=== PATIENT | female | born 1970 | race Caucasian/White ===

== ENCOUNTER 2018-02-25 10:41 | Emergency (ER) | payer OTHER ==
[2018-02-25 10:47] VITALS: BP 154/99
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
[2018-02-25] MEDS ORDERED: OXYMETAZOLINE HCL 0.05% NASAL SPRAY 15 ML BOTTLE NASL ONE (12:25)
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
== END 2018-02-25 12:40 | disposition home or self-care (01) ==
LOC: ER 10:41
DX: S09.92XA Unspecified injury of nose, initial encounter (principal); W50.0XXA Accidental hit or strike by another person, initial encounter; Y92.239 Unspecified place in hospital as the place of occurrence of the external cause; Y99.0 Civilian activity done for income or pay; M54.2 Cervicalgia; I10 Essential (primary) hypertension
CPT/HCPCS: 70150; 72040; 99283; J3490

== ENCOUNTER → 2018-03-25 | Outpatient (CLI) | payer OTHER ==
--- NOTE | 2018-03-25 17:00 | RADIOLOGY REPORT (SQ) ---
EXAM DESCRIPTION: MRI CERVICAL SPINE WITHOUT COMPLETED DATE/TIME: 03/25/2018 12:50 pm REASON FOR STUDY: M47.12 OTHER SPONDYLOSIS WITH MYELOPATHY, CERVICAL REGION M47.12 OTHER SPONDYLOSI S WITH MYELOPATHY, CERVICAL REGION COMPARISON: None. TECHNIQUE: Sagittal and Axial imaging includes T1, T2, STIR and gradient echo sequences. LIMITATIONS: None. FINDINGS: ALIGNMENT: Straightening of cervical lordosis VERTEBRAE: Intact. BONE MARROW: Fatty degenerative endplate changes at C6-7 DISCS: Diffuse decreased T2 weighted intervertebral disc signal throughout the cervical spine HARDWARE: None in the spine. CORD AND BASE OF BRAIN: Normal in size and signal intensity. SOFT TISSUES: No soft tissue masses. C1-C2: No significant spinal stenosis. C2-C3: No significant spinal stenosis or exit foraminal stenosis. C3-C4: No significant spinal stenosis or exit foraminal stenosis. C4-C5: No central or right foraminal narrowing. Mild left foraminal stenosis from facet and uncovert ebral hypertrophy C5-C6: Broad diffuse left paracentral foraminal and lateral disc bulge and bony spurring causes mild to moderate left foraminal narrowing. No significant central stenosis or right foraminal narrowing C6-C7: Broad diffuse posterior disc bulge and bony spurring is present right greater than left with m oderate to high-grade right C6-7 foraminal stenosis. Mild left C6-7 foraminal stenosis. No signific ant central canal impingement. C7-T1: No significant spinal stenosis or exit foraminal stenosis. UPPER THORACIC: Incompletely imaged. No significant spinal stenosis or exit foraminal stenosis. OTHER: No other significant finding. IMPRESSION: Multilevel degenerative changes with foraminal narrowing as above. TECHNICAL DOCUMENTATION: JOB ID: [id number] [employer]- All Rights Reserved Reading location - IP/workstation name: [email or web address]
== END ==
LOC: RAD 12:11 → MERGE 12:11
PROVIDERS: ATTEND Family Medicine
DX: M47.12 Other spondylosis with myelopathy, cervical region (principal)
CPT/HCPCS: 72141

== ENCOUNTER → 2018-03-31 | Outpatient (CLI) | payer OTHER ==
--- NOTE | 2018-04-01 09:59 | RADIOLOGY REPORT (SQ) ---
EXAM DESCRIPTION: MRI LT UPPER JOINT WITHOUT COMPLETED DATE/TIME: 03/31/2018 9:28 pm REASON FOR STUDY: IMPINGEMENT SYNDROME OF LEFT SHOULDER M75.42 IMPINGEMENT SYNDROME OF LEFT SHOULDE R COMPARISON: None. TECHNIQUE: Left shoulder images acquired and stored on PACS. Multiplanar imaging to include fat sens itive sequences such as T1, water sensitive sequences such as FST2/STIR, cartilage sensitive sequence s such as FSPD/gradient-echo sequences. LIMITATIONS: None. FINDINGS: BONE MARROW AND CORTEX: No worrisome bone lesions or marrow replacement. No occult fractur es. JOINT OR BURSAL EFFUSION: No significant joint or bursal fluid. No suggestion of loose bodies. GLENO-HUMERAL ARTICULATION: Normal articulation. No subluxation. No cystic change. No osteophytes or cartilage loss. ACROMION AND AC JOINT: Type 2. Mild AC joint arthropathy. ROTATOR CUFF AND INTERVAL: Mild tendinopathy in the infraspinatus and posterior supraspinatus No rotator interval tear. No rotator interval thickening to suggest adhesive capsulitis. LABRUM AND BICEPS LABRAL COMPLEX: Intact. No labral tear. Intra-articular long-head biceps tendon n ormal. Distal biceps in normal location in bicipital groove. REMAINDER OF LABRUM AND IGHL : No gross tear or paralabral cyst formation. Labral evaluation is less than optimal without joint distention. No thickening of IGHL to suggest adhesive capsulitis. PERIARTICULAR AND ADJACENT SOFT TISSUES: No masses or abnormal nodes. OTHER: No other significant finding. IMPRESSION: Tendinopathy. No rotator cuff tear. TECHNICAL DOCUMENTATION: JOB ID: [id number] [employer]- All Rights Reserved Reading location - IP/workstation name: [email or web address]
== END ==
LOC: RAD 20:21
PROVIDERS: ATTEND Family Medicine
DX: M75.42 Impingement syndrome of left shoulder (principal)

== ENCOUNTER → 2020-11-09 | Outpatient (CLI) | payer OTHER ==
[~2020-11-09] MED LIST: COVID-19 VACCINE (PFIZER)/PF 30 MCG/0.3 ML VIAL IM ONE; EPINEPHRINE INJ/PF 1 MG/1 ML AMPULE IM PRN
== END ==
LOC: EMPHEALTH 14:27
PROVIDERS: ATTEND Internal Medicine
DX: Z23 Encounter for immunization (principal)
CPT/HCPCS: 91300

== ENCOUNTER → 2020-11-30 | Outpatient (CLI) | payer OTHER | LOC: EMPHEALTH 13:37 | PROVIDERS: ATTEND Internal Medicine | DX: Z23 Encounter for immunization (principal) | CPT/HCPCS: 91300 ==